=== PATIENT | male | born 1995 | race Two or more races ===

== ENCOUNTER 2022-01-31 18:40 | Emergency (ER) | payer OTHER ==
[~2022-01-31] VITALS: Ht 182.9 cm; Wt 81.6 kg
[2022-01-31] MEDS ORDERED: FLONASE ALLERG9.9 ML NASAL (22:10)
[2022-01-31] MEDS ORDERED: EC-NAPROSYN500 MG PO (22:10)
[2022-01-31] MEDS ORDERED: ZYRTEC10 M3 PO (22:16)
== END 2022-01-31 22:20 | disposition home or self-care (01) ==
LOC: ER 18:40 → EDBD 18:54 → ER 18:54
DX: S40.012A Contusion of left shoulder, initial encounter (principal); V19.3XXA Pedal cyclist (driver) (passenger) injured in unspecified nontraffic accident, initial encounter; Y93.89 Activity, other specified; Y92.89 Other specified places as the place of occurrence of the external cause; Y99.8 Other external cause status; J06.9 Acute upper respiratory infection, unspecified; J30.89 Other allergic rhinitis; Z20.822 Contact with and (suspected) exposure to COVID-19

== ENCOUNTER → 2022-03-19 | Emergency (ER) | payer OTHER ==
[~2022-03-19] MED LIST: EC-NAPROSYN500 MG PO; FLONASE ALLERG9.9 ML NASAL; ZYRTEC10 M3 PO
== END | disposition left against medical advice (07) ==
LOC: ER 18:21
DX: Z53.21 Procedure and treatment not carried out due to patient leaving prior to being seen by health care provider (principal)

== ENCOUNTER 2022-06-10 13:32 | Emergency (ER) | payer OTHER ==
[~2022-06-10] VITALS: Ht 190.5 cm; Wt 68.0 kg
== END 2022-06-10 16:55 | disposition left against medical advice (07) ==
LOC: ER 13:32
DX: Z53.21 Procedure and treatment not carried out due to patient leaving prior to being seen by health care provider (principal)